=== PATIENT | female | born 1960 | race Caucasian/White ===

== ENCOUNTER 2020-07-13 15:08 | Observation (INO) | payer OTHER ==
[2020-07-13 15:55] LABS: ABSOLUTE LYMPHOCYTES (AUTO) 0.9 10^3/uL (0.5-4.7); ABSOLUTE MONOCYTES (AUTO) 0.2 10^3/uL (0.1-1.4); ABSOLUTE NEUT (AUTO) 8.5 10^3/uL (1.7-8.2); BASOPHILS % (AUTO) 0.3 % (0-2); EOSINOPHILS % (AUTO) 0.1 % (0-6); HEMOGLOBIN 12.8 g/dL (12.0-15.5); LYMPHOCYTES % (AUTO) 9.4 % (13-45); MEAN CORPUSCULAR HEMOGLOBIN 31.3 pg (27.0-33.4); MEAN CORPUSCULAR HGB CONC 34.7 g/dL (32.0-36.0); MEAN CORPUSCULAR VOLUME 90 fl (80-97); MONOCYTES % (AUTO) 2.4 % (3-13); PLATELET COUNT 173 10^3/uL (150-450); RED BLOOD COUNT 4.11 10^6/uL (3.72-5.28); RED CELL DISTRIBUTION WIDTH 12.8 % (11.5-14.0); SEGMENTED NEUTROPHILS % (AUTO) 87.8 % (42-78); TOTAL CELLS COUNTED % (AUTO) 100 %; WHITE BLOOD COUNT 9.7 10^3/uL (4.0-10.5)
[2020-07-13 16:08] LABS: ALBUMIN 3.8 g/dL (3.5-5.0); ALKALINE PHOSPHATASE 110 U/L (38-126); ANION GAP 6 (5-19); ASPARTATE AMINO TRANSFERASE 24 U/L (14-36); BILIRUBIN,DIRECT 0.2 mg/dL (0.0-0.4); BILIRUBIN,TOTAL 0.4 mg/dL (0.2-1.3); BLOOD UREA NITROGEN 19 mg/dL (7-20); CALCIUM 9.3 mg/dL (8.4-10.2); CARBON DIOXIDE 26 mmol/L (22-30); CHLORIDE 104 mmol/L (98-107); CREATINE KINASE 54 U/L (30-135); GLUCOSE 180 mg/dL (75-110); POTASSIUM 3.3 mmol/L (3.6-5.0); TOTAL PROTEIN 6.1 g/dL (6.3-8.2)
[2020-07-13 16:10] LABS: APPEARANCE,URINE SLIGHTLY-CLOUDY; BILIRUBIN,URINE NEGATIVE (NEGATIVE); COLOR,URINE YELLOW; GLUCOSE, URINE NEGATIVE (NEGATIVE); KETONES,URINE 20 mg/dL (NEGATIVE); LEUKOCYTE ESTERASE,URINE NEGATIVE (NEGATIVE); NITRITE,URINE NEGATIVE (NEGATIVE); PROTEIN,URINE 30 mg/dL (NEGATIVE); URINE SPECIFIC GRAVITY 1.013; UROBILINOGEN,URINE NEGATIVE mg/dL (<2.0)
[2020-07-13 16:19] LABS: CREATINE KINASE MB 1.09 ng/mL (<4.55)
[2020-07-13 16:25] LABS: TROPONIN I 0.06 ng/mL
[2020-07-13] MEDS ORDERED: NORMAL SALINE 1000 ML 1,000 ML IV ONE (16:40)
--- NOTE | 2020-07-13 17:08 | ER Document Report ---
ED Syncope and Near Syncope - General Chief Complaint: Syncope Stated Complaint: POSSIBLE SYNCOPE Time Seen by Provider: 07/13/20 16:29 - HPI Notes: Patient is a 59-year-old female with a past medical history of depression who presents with syncope. Patient states that she ate sausage this morning. She went to go sit out on the back deck. She states she began to feel warm and flushed. She had itching to both of her palms. She went to get Benadryl. Patient went to sit back down because she began to feel lightheaded. She did mention some chest tightness. Her mother found her passed out in the chair. They are unsure how long she was passed out for. Patient only remembers when the paramedics came. According to reports, patient was hypotensive and hypoxic. They placed her on nonrebreather. On arrival to the ER, patient is alert and oriented and on room air. Patient states this happened about 3 months ago with the same symptoms. She went to [facility] and had a normal work-up and was discharged. She mentions she ate sausage before that episode as well. She is not sure if she has developed an allergy to this. She does not have a family doctor in the area. Currently, she denies any complaints. She is resting comfortably. - Related Data Allergies/Adverse Reactions: No Known Allergies Allergy (Unverified 07/13/20 16:14) Past Medical History - General Information source: Patient, Emergency Med Personnel - Social History Smoking Status: Never Smoker Chew tobacco use (# tins/day): No Frequency of alcohol use: None Drug Abuse: None Family History: Reviewed & Not Pertinent Patient has homicidal ideation: No Review of Systems - Review of Systems Notes: CONSTITUTIONAL: No fever, fatigue or weight loss. SKIN: No rash. HENT: No congestion, ear pain, or sore throat. EYES: No recent vision problems or eye pain. CARDIOVASCULAR: No chest pain or edema. RESPIRATORY: No cough, shortness of breath, congestion, or wheezing. GASTROINTESTINAL: No abdominal pain, nausea, vomiting, bloody stools or diarrhea. GENITOURINARY: No dysuria. MUSCULOSKELETAL: No joint pain or swelling. LYMPHATIC: No swollen glands. NEUROLOGIC: No seizures. No headache, focal weakness or sensory changes. HEMATOLOGIC: No unusual bruising or bleeding. PSYCHIATRIC: History of depression. Physical Exam - Vital signs Vitals: Resp BP Pulse Ox 32 H 115/59 L 96 07/13/20 15:14 07/13/20 15:14 07/13/20 15:14 - General General appearance: Appears well In distress: None Notes: VITAL SIGNS: Within normal limits. GENERAL: No acute distress, non-toxic appearance. HEAD: Normal with no signs of head trauma. EYES: Conjunctiva normal NOSE: Normal. NECK: Normal range of motion. Supple. No meningismus. CHEST: Clear breath sounds bilaterally. No wheezes, rales, or rhonchi. CARDIAC: Regular rate and rhythm. VASCULAR: No Edema. ABDOMEN: Normal and soft with no tenderness. GENITOURINARY: Normal, No tenderness MUSCULOSKELETAL: Good range of motion of all major joints. Extremities without clubbing, cyanosis or edema. NEUROLOGICAL: Alert and oriented x 3. No focal sensory or strength deficits. Speech normal. Follows commands appropriately. PSYCHIATRIC: Normal Affect, judgement and mood. SKIN: Normal appearance with no rashes or lesions. Course - Re-evaluation Re-evalutation: 07/14/20 01:20 Patient's presentation is concerning. She was hypoxic and hypotensive for EMS. This has resolved now. She does have an elevated troponin. Patient denies any chest pain. I am concerned because she had a syncopal episode and has an elevated troponin. I believe she requires admission for a cardiac work-up. Patient is very agreeable to this. I discussed with the hospitalists who were also in agreement. - Vital Signs Vital signs: Temp Pulse Resp BP Pulse Ox 97.6 F 93 18 99/46 L 100 07/13/20 22:36 07/13/20 22:36 07/13/20 22:36 07/13/20 22:36 07/13/20 22:36 - Laboratory Results Result Diagrams: 07/13/20 15:30 07/13/20 15:30 Laboratory Results Interpreted: 07/13/20 07/13/20 07/13/20 15:30 15:30 15:30 Lymph % (Auto) 9.4 L [place] % (Auto) 2.4 L Absolute Neuts (auto) 8.5 H Seg Neutrophils % 87.8 H Sodium 136.0 L Potassium 3.3 L Glucose 180 H Magnesium 1.5 L Total Protein 6.1 L Urine Protein Urine Ketones 07/13/20 15:45 Lymph % (Auto) [place] % (Auto) Absolute Neuts (auto) Seg Neutrophils % Sodium Potassium Glucose Magnesium Total Protein Urine Protein 30 H Urine Ketones 20 H Critical Laboratory Results Reviewed: Yes Attending or Supervising Physician who Reviewed Labs: MARGUERITE JUDD - Radiology Results Critical Radiology Results Reviewed: No Critical Results - EKG Interpretation by Sc EKG shows normal: Sinus rhythm Rate: Normal Rhythm: NSR When compared to previous EKG there are: Previous EKG unavailable Additional EKG results interpreted by me: 07/13/20 17:09 Sinus rhythm at a rate of 92. QTc 481. No acute ST changes. No previous EKG available for comparison. Discharge - Discharge Clinical Impression: Elevated troponin Syncope Qualifiers: Syncope type: unspecified Qualified Code(s): R55 - Syncope and collapse Disposition: ADMITTED OBSERVATION Admitting Provider: Parul (Hospitalist) Unit Admitted: Telemetry
--- NOTE | 2020-07-13 17:09 | RADIOLOGY REPORT (SQ) ---
EXAM DESCRIPTION: CHEST SINGLE VIEW IMAGES COMPLETED DATE/TIME: 07/13/2020 3:52 pm REASON FOR STUDY: syncope, elevated troponin COMPARISON: None. EXAM PARAMETERS: NUMBER OF VIEWS: One view. TECHNIQUE: Single frontal radiographic view of the chest acquired. RADIATION DOSE: NA LIMITATIONS: None. FINDINGS: LUNGS AND PLEURA: Lungs are hyperinflated. No opacities, masses or pneumothorax. No pleur al effusion. MEDIASTINUM AND HILAR STRUCTURES: No masses. Contour normal. HEART AND VASCULAR STRUCTURES: Heart normal in size. Normal vasculature. BONES: No acute findings. HARDWARE: Surgical clips in the neck. OTHER: No other significant finding. IMPRESSION: Hyperinflated lungs which can be seen with obstructive lung disease. No acute cardiopul monary disease. TECHNICAL DOCUMENTATION: JOB ID: [id number] 2010 [employer]- All Rights Reserved Reading location - IP/workstation name: [email or web address]
[2020-07-13] MEDS ORDERED: ASPIRIN 325 MG TABLET PO ONE (17:29)
[2020-07-13] MEDS ORDERED: ONDANSETRON 4 MG TAB.RAPDIS PO PRN (18:23)
[2020-07-13] MEDS ORDERED: ACETAMINOPHEN 325 MG TABLET PO PRN (18:23)
[2020-07-13] MEDS ORDERED: NITROGLYCERIN 0.4 MG/TAB 25 TAB/BOTTLE SL PRN (18:23)
[2020-07-13] MEDS ORDERED: POTASSI CL 20 MEQ/50 ML RIDER 20 MEQ/50 ML RTUPB IV ONE (19:00)
--- NOTE | 2020-07-13 19:17 | PDOC H&P ---
History of Present Illness Admission Date/PCP: 07/13/20 17:41 Patient complains of: Syncope History of Present Illness: MALACHI LAGOS is a 59 year old female with past medical history depression and HLD who presents to the emergency department via EMS following syncopal episode. Syncopal episode precipitated by sensation of feeling flushed and hot all over with associated redness and itching on both her palms. Shortly after onset she began to feel "whoozy" and light headed as if she were going to pass out. Sat herself down in a chair where he mother found her passed out shortly after. When she woke she had a mild cough (which she relates more to her hyperventilating) and BAÑUELOS, both of which have resolved. She was able to describe entire event in detail to me. Per EMS pt was hypotensive (70/38) and hypoxic (83% RA) when they arrived on scene. Patient was placed on a nonrebreather. In the ED pt was alert and oriented with VSS. Patient reports similar episode ~3 months ago. Evaluated at [facility], normal work up, discharged home. Relates syncopal episodes to consuming meat. Evaluation in the ED patient with VSS. CBC, CXR, urines unremarkable. Chemistries notable for K 3.3, Na 136, and glucose 180. Toponin I 0.06. EKG without acute ST changes. She received single dose ASA and IVF and referred to the hospital team for further evaluation and observation. Past Medical History Cardiac Medical History: Denies: Atrial Fibrillation, Congestive Heart Failure, Coronary Artery Disease, DVT, Myocardial Infarction, Hypertension, Pulmonary Embolism, Heart Murmur Pulmonary Medical History: Denies: Asthma, Bronchitis, Chronic Obstructive Pulmonary Disease (COPD) Neurological Medical History: Denies: Hemorrhagic CVA, Ischemic CVA, Migraine, Seizures Endocrine Medical History: Denies: Diabetes Mellitus Type 1, Diabetes Mellitus Type 2, Hyperthyroidism, Hypothyroidism Renal/ Medical History: Denies: Chronic Kidney Disease, Nephrolithiasis Malignancy Medical History: Reports: Other - Skin cancer GI Medical History: Denies: Gastroesophageal Reflux Disease Psychiatric Medical History: Reports: Depression Denies: Alcohol Dependency, Substance Abuse, Tobacco Dependency Hematology: Denies: Anemia, Bleeding Tendencies Past Surgical History Past Surgical History: Reports: Section, Thyroidectomy Social History Information Source: Patient, Relative Lives with: Family Smoking Status: Never Smoker Electronic Cigarette use?: No Frequency of Alcohol Use: Occasional Hx Recreational Drug Use: No Drugs: None Hx Prescription Drug Abuse: No - Advance Directive Resuscitation Status: Full Code Family History Family History: CAD, CVA, Hyperlipidemia, Hypertension Parental Family History Reviewed: Yes Children Family History Reviewed: Yes Sibling(s) Family History Reviewed.: Yes Medication/Allergy Allergies/Adverse Reactions: No Known Allergies Allergy (Unverified 07/13/20 16:14) Review of Systems Constitutional: PRESENT: headache(s) - resolved.. ABSENT: chills, fatigue, fever(s) Eyes: PRESENT: visual disturbances - resolved Ears: ABSENT: hearing changes Nose, Mouth, and Throat: ABSENT: vertigo Cardiovascular: ABSENT: chest pain, dyspnea on exertion, palpitations Respiratory: PRESENT: cough. ABSENT: dyspnea, sputum Gastrointestinal: PRESENT: nausea. ABSENT: abdominal pain, diarrhea, vomiting Genitourinary: ABSENT: difficulty urinating Musculoskeletal: ABSENT: back pain, muscle weakness Neurological: PRESENT: dizziness, syncope. ABSENT: abnormal movements, abnormal speech, confusion, focal weakness, numbness, paresthesias Psychiatric: PRESENT: depression. ABSENT: homidical ideation, suicidal ideation Endocrine: ABSENT: polydipsia, polyphagia, polyuria Hematologic/Lymphatic: PRESENT: easy bruising. ABSENT: easy bleeding Physical Exam Vital Signs: Temp Pulse Resp BP Pulse Ox 98.8 F 91 17 122/82 97 07/13/20 16:15 07/13/20 16:15 07/13/20 18:00 07/13/20 18:00 07/13/20 18:00 Intake & Output 07/12/20 07/13/20 07/14/20 06:59 06:59 06:59 Weight 72.1 kg General appearance: PRESENT: no acute distress, cooperative, well-developed, well-nourished Head exam: PRESENT: atraumatic, normocephalic Eye exam: PRESENT: EOMI, PERRLA. ABSENT: scleral icterus Ear exam: PRESENT: normal external ear exam Mouth exam: PRESENT: dry mucosa, tongue midline Neck exam: PRESENT: full ROM. ABSENT: carotid bruit, JVD, lymphadenopathy, tenderness Respiratory exam: PRESENT: clear to auscultation jl, symmetrical, unlabored. ABSENT: chest wall tenderness Cardiovascular exam: PRESENT: RRR, +S1, +S2. ABSENT: diastolic murmur, systolic murmur Pulses: PRESENT: normal radial pulses GI/Abdominal exam: PRESENT: normal bowel sounds, soft. ABSENT: tenderness Rectal exam: PRESENT: deferred Extremities exam: PRESENT: full ROM, pedal edema. ABSENT: clubbing Musculoskeletal exam: PRESENT: ambulatory, full ROM. ABSENT: deformity Neurological exam: PRESENT: alert, awake, oriented to person, oriented to place, oriented to time, oriented to situation, CN II-XII grossly intact. ABSENT: motor sensory deficit Psychiatric exam: PRESENT: appropriate affect, normal mood Skin exam: PRESENT: dry, intact, warm Results Laboratory Results: 07/13/20 15:30 07/13/20 15:30 07/13/20 07/13/20 07/13/20 15:30 15:30 15:45 WBC 9.7 RBC 4.11 Hgb 12.8 Hct 37.0 MCV 90 MCH 31.3 MCHC 34.7 RDW 12.8 Plt Count 173 Seg Neutrophils % 87.8 H Sodium 136.0 L Potassium 3.3 L Chloride 104 Carbon Dioxide 26 Anion Gap 6 BUN 19 Creatinine 0.87 Est GFR ( Amer) > 60 Glucose 180 H Calcium 9.3 Total Bilirubin 0.4 AST 24 Alkaline Phosphatase 110 Total Protein 6.1 L Albumin 3.8 Urine Color YELLOW Urine Appearance SLIGHTLY-CLOUDY Urine pH 7.0 Ur Specific Irene 1.013 Urine Protein 30 H Urine Glucose (UA) NEGATIVE Urine Ketones 20 H Urine Blood NEGATIVE Urine Nitrite NEGATIVE Ur Leukocyte Esterase NEGATIVE Urine WBC (Auto) 0 07/13/20 07/13/20 15:30 15:30 Creatine Kinase 54 CK-MB (CK-2) 1.09 Troponin I 0.060 Impressions: Chest X-Ray 07/13/20 16:41 IMPRESSION: Hyperinflated lungs which can be seen with obstructive lung disease. No acute cardiopulmonary disease. Assessment and Plan - Diagnosis (1) Syncope Qualifiers: Syncope type: unspecified Qualified Code(s): R55 - Syncope and collapse Is this a current diagnosis for this admission?: Yes Plan: Syncopal episode, approximately 20 minutes in duration. With associated hypotension and hypoxia. Since resolved, BP WNL, O2 sats WNL on room air. Currently asymptomatic. Denies history of arrhythmias. EKG sinus rhythm rate in 90s. Placed on telemetry. Orthostatic vitals every shift. Monitor electrolytes, replete accordingly. TSH, free T4 in the morning. Admit for observation. Cardiology consulted, appreciate recommendations. (2) Elevated troponin Is this a current diagnosis for this admission?: Yes Plan: Troponin 0.06, trending Likely secondary to demand mismatch, given recent history of syncopal episode wi th associated hypotension and hypoxia. Denies ischemic symptoms. EKG sinus rhythm, without ST changes. Placed on telemetry. Lipid panel in the morning. Initiate aspirin and statin. Cardiology consulted, appreciate recommendations. (3) Hypotension Is this a current diagnosis for this admission?: Yes Plan: Per EMS pt hypotensive on initial evaluation. Responded to fluids. BP since has been stale. Cnt to monitor. (4) Hypokalemia Is this a current diagnosis for this admission?: Yes Plan: K 3.3 on initial evaluation. Will replete. Monitor on morning labs. (5) Depression Is this a current diagnosis for this admission?: Yes Plan: Hx depression. Home medications include: Buspar, Wellbutrin. Initiate home meds. (6) HLD (hyperlipidemia) Is this a current diagnosis for this admission?: Yes Plan: Hx HLD. Statin as above. - Time Time Spent with patient: 35 or more minutes Medications reviewed and adjusted accordingly: Yes Anticipated Discharge Disposition: Home, Self Care Anticipated Discharge Timeframe: within 48 hours
--- NOTE | 2020-07-13 21:21 | EKG REPORT ---
SEVERITY:- BORDERLINE ECG - SINUS RHYTHM PROBABLE LEFT ATRIAL ABNORMALITY BORDERLINE T WAVE ABNORMALITIES : Confirmed by: Oscar Freedman MD 13-Jul-2020 21:20:35
[2020-07-13] MEDS ORDERED: ATORVASTATIN CALCIUM 80 MG TABLET PO SCH (22:00)
[2020-07-13] MEDS: ENOXAPARIN SODIUM INJ 30 MG/0.3 ML DISP.SYRIN SUBCUT SCH (22:04)
--- NOTE | 2020-07-14 06:17 | EKG REPORT ---
SEVERITY:- NORMAL ECG - SINUS RHYTHM : Confirmed by: Oscar Freedman MD 14-Jul-2020 06:16:09
[2020-07-14 06:29] LABS: APPEARANCE,URINE CLEAR; BILIRUBIN,URINE NEGATIVE (NEGATIVE); COLOR,URINE YELLOW; GLUCOSE, URINE NEGATIVE (NEGATIVE); KETONES,URINE NEGATIVE (NEGATIVE); LEUKOCYTE ESTERASE,URINE SMALL (NEGATIVE); NITRITE,URINE NEGATIVE (NEGATIVE); PROTEIN,URINE NEGATIVE (NEGATIVE); URINE SPECIFIC GRAVITY 1.011; UROBILINOGEN,URINE NEGATIVE mg/dL (<2.0)
[2020-07-14 06:42] LABS: HEMATOCRIT 34.6 % (36.0-47.0); HEMOGLOBIN 11.7 g/dL (12.0-15.5); MEAN CORPUSCULAR HEMOGLOBIN 30.8 pg (27.0-33.4); MEAN CORPUSCULAR HGB CONC 33.9 g/dL (32.0-36.0); MEAN CORPUSCULAR VOLUME 91 fl (80-97); PLATELET COUNT 170 10^3/uL (150-450); RED CELL DISTRIBUTION WIDTH 13.5 % (11.5-14.0); WHITE BLOOD COUNT 6.6 10^3/uL (4.0-10.5)
[2020-07-14 07:03] LABS: BLOOD UREA NITROGEN 12 mg/dL (7-20); CALCIUM 8.9 mg/dL (8.4-10.2); CHOLESTEROL 184.75 mg/dL (0-200); GLUCOSE 86 mg/dL (75-110); POTASSIUM 4.1 mmol/L (3.6-5.0); TRIGLYCERIDES 89 mg/dL (<150)
[2020-07-14 07:08] LABS: CARBON DIOXIDE 26 mmol/L (22-30); CHLORIDE 110 mmol/L (98-107)
[2020-07-14 07:13] LABS: DIRECT LDL 68 mg/dL (<100)
[2020-07-14 07:19] LABS: FREE T4 (FREE THYROXINE) 0.84 ng/dL (0.78-2.19)
[2020-07-14 07:23] LABS: ANION GAP 4 (5-19); VLDL CHOLESTEROL 17.8 mg/dL (10-31)
[2020-07-14 07:33] LABS: THYROID STIMULATING HORMONE 1.05 uIU/mL (0.47-4.68)
--- NOTE | 2020-07-14 09:30 | PDOC CONSULTATION ---
Consultation Consult Date: 07/14/20 Attending physician:: JOSE A CHRISTIE Provider Consulted: ROMAN VO Consult reason:: Presyncope. History of Present Illness Admission Date/PCP: 07/13/20 17:41 History of Present Illness: MALACHI LAGOS is a 59 year old female with prior history of depression, prior history of presyncope/syncope with normal work-up several months ago, hypothyroidism secondary to thyroidectomy, hyperlipidemia, remote smoker who quit in 1992 and without family history of premature coronary artery disease who is consulted to our service for evaluation of elevated troponin and syncope. The patient states that she lost a significant amount of weight several years ago when she changed her diet and started eating healthier, she barely eats any meat nowadays. She was in her normal state of health until yesterday when after eating a sausage biscuit and while she was sitting, she began to feel hot and had a feeling she was about to pass out. This was followed by itchiness in her hands and feeling woozy at which point she thought she was having allergic reaction to the food she was eating. She tried to get up to get some Benadryl however she felt very weak and fell back on her chair. She eventually was able to get up and take some Benadryl and sat down her chair. At some point she lost consciousness but did not fall. Per the EMS and ER physician report, her mother found her drooling and leaning to the side. EMS documented a blood pressure of 70/38 with a heart rate of 148 and a pulse ox of 83%. She was given IV fluids and oxygen with resolution of those vital signs. She had been asymptomatic since admission and specifically without chest pain, shortness of breath, PARIKH, PND, lower extremity edema, palpitations, syncope or presyncope. Her orthostatic vital signs have been within normal limits. She does not exercise s trenuously however she does walk her dog twice a day for 30 minutes without cardiac complaints. Her EKG demonstrated normal sinus rhythm. Her telemetry this morning shows normal sinus rhythm with episodes of sinus tachycardia. Physical exam on 07/14/2020: GENERAL: Pleasant and conversational. Oriented x3 with normal mood. Not in acute distress. Well groomed and well developed. HEENT: Normocephalic, atraumatic. Pupils equal. Sclerae anicteric. Oropharynx moist. NECK: No JVD. No carotid bruits. LUNGS: Clear to auscultation bilaterally. Normal respiratory effort without the use of accessory muscles or intercostal retractions. CARDIOVASCULAR: Regular rate and rhythm, normal S1 and S2 without murmurs, rubs, or gallops. PMI not displaced. ABDOMEN: No masses or tenderness to palpation. No bruit. No splenomegaly or hepatomegaly. No abdominal aorta bruit noted. EXTREMITIES: No edema, no cyanosis, no clubbing. +2 pulses femoral and pedal pulses bilaterally. SKIN: No lesions or rashes. MUSCULOSKELETAL: No chest tenderness to palpation. NEUROLOGIC: Nonfocal. No gross sensory or motor deficits bilateral upper or lower extremities. Past Medical History Cardiac Medical History: Denies: Atrial Fibrillation, Congestive Heart Failure, Coronary Artery Disease, DVT, Myocardial Infarction, Hypertension, Pulmonary Embolism, Heart Murmur Pulmonary Medical History: Denies: Asthma, Bronchitis, Chronic Obstructive Pulmonary Disease (COPD), Pneumonia, Tuberculosis Neurological Medical History: Denies: Hemorrhagic CVA, Ischemic CVA, Migraine, Seizures Endocrine Medical History: Denies: Diabetes Mellitus Type 1, Diabetes Mellitus Type 2, Hyperthyroidism, Hypothyroidism Renal/ Medical History: Denies: Chronic Kidney Disease, End Stage Renal Disease, Nephrolithiasis Malignancy Medical History: Reports: Other - Skin cancer GI Medical History: Denies: Cirrhosis, Gastroesophageal Reflux Disease Musculoskeltal Medical History: Denies: Arthritis Psychiatric Medical History: Reports: Depression Denies: Alcohol Dependency, Bipolar Disorder, Substance Abuse, Tobacco Dependency Hematology: Denies: Anemia, Bleeding Tendencies Past Surgical History Past Surgical History: Reports: Section, Thyroidectomy Social History Lives with: Family Smoking Status: Never Smoker Electronic Cigarette use?: No Frequency of Alcohol Use: Occasional Hx Recreational Drug Use: No Drugs: None Hx Prescription Drug Abuse: No - Advance Directive Resuscitation Status: Full Code Family History Family History: Reviewed & Not Pertinent Parental Family History Reviewed: Yes Children Family History Reviewed: Yes Sibling(s) Family History Reviewed.: Yes Medication/Allergy Allergies/Adverse Reactions: No Known Allergies Allergy (Unverified 07/13/20 16:14) Physical Exam Vital Signs: Temp Pulse Resp BP Pulse Ox 97.4 F 86 18 103/64 95 07/14/20 04:00 07/14/20 04:00 07/14/20 04:00 07/14/20 04:00 07/14/20 04:00 Intake & Output 07/12/20 07/13/20 07/14/20 06:59 06:59 06:59 Intake Total 1310 Balance 1310 Weight 68.9 kg Results Laboratory Results: 07/13/20 15:30 07/13/20 15:30 07/13/20 07/13/20 07/13/20 15:30 15:30 15:30 WBC 9.7 RBC 4.11 Hgb 12.8 Hct 37.0 MCV 90 MCH 31.3 MCHC 34.7 RDW 12.8 Plt Count 173 Seg Neutrophils % 87.8 H Sodium 136.0 L Potassium 3.3 L Chloride 104 Carbon Dioxide 26 Anion Gap 6 BUN 19 Creatinine 0.87 Est GFR ( Amer) > 60 Glucose 180 H Calcium 9.3 Magnesium 1.5 L Total Bilirubin 0.4 AST 24 Alkaline Phosphatase 110 Total Protein 6.1 L Albumin 3.8 Urine Color Urine Appearance Urine pH Ur Specific [place] Urine Protein Urine Glucose (UA) Urine Ketones Urine Blood Urine Nitrite Ur Leukocyte Esterase Urine WBC (Auto) 07/13/20 15:45 WBC RBC Hgb Hct MCV MCH MCHC RDW Plt Count Seg Neutrophils % Sodium Potassium Chloride Carbon Dioxide Anion Gap BUN Creatinine Est GFR ( Amer) Glucose Calcium Magnesium Total Bilirubin AST Alkaline Phosphatase Total Protein Albumin Urine Color YELLOW Urine Appearance SLIGHTLY-CLOUDY Urine pH 7.0 Ur Specific [place] 1.013 Urine Protein 30 H Urine Glucose (UA) NEGATIVE Urine Ketones 20 H Urine Blood NEGATIVE Urine Nitrite NEGATIVE Ur Leukocyte Esterase NEGATIVE Urine WBC (Auto) 0 07/13/20 07/13/20 07/13/20 15:30 15:30 18:30 Creatine Kinase 54 CK-MB (CK-2) 1.09 Troponin I 0.060 0.242 07/13/20 22:00 Creatine Kinase CK-MB (CK-2) Troponin I 0.150 Impressions: Chest X-Ray 07/13/20 16:41 IMPRESSION: Hyperinflated lungs which can be seen with obstructive lung disease. No acute cardiopulmonary disease. 07/14/20 05:33 07/14/20 05:33 MCV 91 fl (80-97) 07/14/20 05:33 MCH 30.8 pg (27.0-33.4) 07/14/20 05:33 MCHC 33.9 g/dL (32.0-36.0) 07/14/20 05:33 RDW 13.5 % (11.5-14.0) 07/14/20 05:33 Seg Neutrophils % 87.8 % (42-78) H 07/13/20 15:30 Chloride 110 mmol/L (98-107) H 07/14/20 05:33 Carbon Dioxide 26 mmol/L (22-30) 07/14/20 05:33 Anion Gap 4 (5-19) L 07/14/20 05:33 Est GFR ( Amer) > 60 (>60) 07/14/20 05:33 Glucose 86 mg/dL (75-110) 07/14/20 05:33 Calcium 8.9 mg/dL (8.4-10.2) 07/14/20 05:33 Magnesium 2.0 mg/dL (1.6-2.3) 07/14/20 05:33 Total Bilirubin 0.4 mg/dL (0.2-1.3) 07/13/20 15:30 AST 24 U/L (14-36) 07/13/20 15:30 Alkaline Phosphatase 110 U/L (38-126) 07/13/20 15:30 Total Protein 6.1 g/dL (6.3-8.2) L 07/13/20 15:30 Albumin 3.8 g/dL (3.5-5.0) 07/13/20 15:30 Triglycerides 89 mg/dL (<150) 07/14/20 05:33 Cholesterol 184.75 mg/dL (0-200) 07/14/20 05:33 LDL Cholesterol Direct 68 mg/dL (<100) 07/14/20 05:33 VLDL Cholesterol 17.8 mg/dL (10-31) 07/14/20 05:33 HDL Cholesterol 84 mg/dL (>40) 07/14/20 05:33 TSH 1.05 uIU/mL (0.47-4.68) 07/14/20 05:33 Free T4 0.84 ng/dL (0.78-2.19) 07/14/20 05:33 Urine Color YELLOW 07/14/20 04:49 Urine Appearance CLEAR 07/14/20 04:49 Urine pH 7.0 (5.0-9.0) 07/14/20 04:49 Ur Specific [place] 1.011 07/14/20 04:49 Urine Protein NEGATIVE mg/dL (NEGATIVE) 07/14/20 04:49 Urine Glucose (UA) NEGATIVE mg/dL (NEGATIVE) 07/14/20 04:49 Urine Ketones NEGATIVE mg/dL (NEGATIVE) 07/14/20 04:49 Urine Blood NEGATIVE (NEGATIVE) 07/14/20 04:49 Urine Nitrite NEGATIVE (NEGATIVE) 07/14/20 04:49 Ur Leukocyte Esterase SMALL (NEGATIVE) H 07/14/20 04:49 Urine WBC (Auto) 1 /HPF 07/14/20 04:49 Urine RBC (Auto) 0 /HPF 07/14/20 04:49 07/13/20 07/13/20 07/13/20 15:30 15:30 18:30 Creatine Kinase 54 CK-MB (CK-2) 1.09 Troponin I 0.060 0.242 07/13/20 22:00 Creatine Kinase CK-MB (CK-2) Troponin I 0.150 Current Medication List Generic Name Dose Route Start Last Admin Trade Name Freq PRN Reason Stop Dose Admin Acetaminophen 650 mg 07/13/20 18:23 Acetaminophen 325 Mg Tablet PO 08/12/20 18:22 Q4HP PRN FOR HEADACHE Aspirin 81 mg 07/14/20 10:00 Aspirin 81 Mg Tablet, Ent Coated PO 08/13/20 09:59 DAILY [facility] Atorvastatin Calcium 80 mg 07/13/20 22:00 07/13/20 22:04 Atorvastatin Calcium 80 Mg Tablet PO 08/12/20 21:59 80 mg QHS YIN Administration Enoxaparin Sodium 30 mg 07/13/20 22:00 07/13/20 22:04 Enoxaparin Sodium Inj 30 Mg/0.3 Ml Disp.Syrin SUBCUT 08/12/20 21:59 30 mg Q12 YIN Administration Famotidine 20 mg 07/14/20 10:00 Famotidine 20 Mg Tablet PO 08/13/20 09:59 BID YIN Nitroglycerin 1 tab 07/13/20 18:23 Nitroglycerin 0.4 Mg/Tab 25 Tab/Bottle SL Q5MP PRN FOR CHEST PAIN Ondansetron HCl 4 mg 07/13/20 18:23 Ondansetron 4 Mg Tab.Rapdis PO 08/12/20 18:22 Q6HP PRN FOR NAUSEA/VOMITING Sodium Chloride 2.5 ml 07/13/20 22:00 07/14/20 05:14 Normal Saline Flush 2.5 Ml Disp.Syrin IV 08/12/20 21:59 2.5 ml Q8 YIN Administration Discontinued Medications Generic Name Dose Route Start Last Admin Trade Name Thu QUINTANAN Reason Stop Dose Admin Aspirin 325 mg 07/13/20 17:29 07/13/20 17:51 Aspirin 325 Mg Tablet PO 07/13/20 17:30 325 mg NOW ONE Administration Sodium Chloride 1,000 mls @ 0 mls/hr 07/13/20 16:40 07/13/20 19:00 Nacl 0.9% 1000 Ml Iv Soln IV 07/13/20 16:41 Infused BOLUS ONE Infusion Wide Open Potassium Chloride/Water 20 meq in 50 mls @ 25 mls/hr 07/13/20 19:00 07/13/20 22:00 Potassium Chloride Boo 20 Meq/50 Ml IV 07/13/20 20:59 Infused NOW ONE Infusion Assessment & Plan - Diagnosis (1) Syncope Qualifiers: Syncope type: unspecified Qualified Code(s): R55 - Syncope and collapse Is this a current diagnosis for this admission?: Yes Plan: Likely secondary to a vasovagal event. Her cardiovascular exam is normal this morning and her telemetry did not show any complex or sustained atrial/ventricular dysrhythmias however need to rule out occurrence of any dysrhythmias in the outpatient setting. Normal orthostatic vital signs since admission and since IV hydration. Recommendations: -Continue current medical management. -Continue repletion of electrolytes. -Increase fluid and salt intake. -Preventice monitor in the outpatient setting, I will arrange for that. -Echocardiogram as ordered. -Continue with cardiac telemetry. (2) Elevated troponin Is this a current diagnosis for this admission?: Yes Plan: Likely secondary to a type II OR given her very low blood pressure at home associated with tachycardia and hypoxemia. The patient has never had any ischemic symptoms even when walking her dogs for 30 minutes twice a day. I spok e with her at length about the pathophysiology of type II OR and further work-up with stress testing. The patient prefers outpatient work-up and is eager to go home. At this point we will proceed with echocardiography and, if normal ejection fraction and no regional wall motion abnormalities, she can undergo stress testing as an outpatient.
[2020-07-14] MEDS ORDERED: ASPIRIN 81 MG TABLET, ENT COATED PO SCH (10:00)
[2020-07-14] MEDS: ENOXAPARIN SODIUM INJ 30 MG/0.3 ML DISP.SYRIN SUBCUT SCH (10:36)
[2020-07-14] MEDS: FAMOTIDINE 20 MG TABLET PO SCH ×2 (10:36→17:28)
[2020-07-14] MEDS ORDERED: (PENDING PHARMACY ID) (Butalb/Acetaminophen/Caffeine [Butalb-Acetamin-Caff 50-325-40] 1 EA PO PRN (14:39)
[2020-07-14] MEDS ORDERED: BUTALB/ACETAMINOPHEN/CAFFEINE 1 TAB EACH PO PRN (14:43)
[2020-07-14] MEDS ORDERED: (PENDING PHARMACY ID) (Bupropion Hcl [Bupropion Xl] 150 MG Tab.Er.24h) PO SCH (14:45)
--- NOTE | 2020-07-14 16:39 | XCELERA REPORT ---
[address] [address] Transthoracic Echocardiogram Report Name: MALACHI LAGOS Age: 59 yrs Gender: Female : 1960 Patient Status: Inpatient Patient Location: [address] [place], [place] [address] Study Date: 07/14/2020 09:55 AM Height: 64 in Weight: 148 lb BSA: 1.7 m2 Procedure: A complete two-dimensional transthoracic echocardiogram was performed (2D, M-mode, spectral and color flow Doppler). The study was technically good with many images being of high quality. Reason For Study: Syncope, elevated troponin Ordering Physician: ROMAN BLANCAS Performed By: Helena Mae Interpretation Summary The left ventricle is normal in size, thickness and function. Left ventricular systolic function is normal. The Ejection Fraction estimate is 50-55%. Doppler measurements suggest normal left ventricular diastolic function. No regional wall motion abnormalities noted. There is no thrombus. Mild MR, mild TR. No prior studies for comparison. MMode/2D Measurements & Calculations RVDd: 2.4 cm LVIDd: 4.6 cm FS: 30.5 % Ao root diam: 2.8 cm IVSd: 0.96 cm LVIDs: 3.2 cm EDV(Teich): Ao root area: 99.0 ml LVPWd: 0.80 cm 6.3 cm2 ESV(Teich): 41.6 ml EF(Teich): 58.0 % EDV(MOD-sp4): SV(MOD-sp4): 60.0 ml 25.0 ml ESV(MOD-sp4): 35.0 ml EF(MOD-sp4): 41.6 % Doppler Measurements & Calculations MV E max jean: MV dec slope: Ao V2 max: LV V1 max P.2 cm/sec 91.3 cm/sec 3.0 mmHg MV A max jean: 487.6 cm/sec2 Ao max PG: LV V1 max: 58.3 cm/sec MV dec time: 0.16 sec 3.3 mmHg 86.6 cm/sec MV E/A: 1.3 PA V2 max: TR max jean: 75.3 cm/sec 243.3 cm/sec PA max P.3 mmHg TR max P.7 mmHg Left Ventricle The left ventricle is normal in size, thickness and function. Left ventricular systolic function is normal. The Ejection Fraction estimate is 50-55%. Doppler measurements suggest normal left ventricular diastolic function. No regional wall motion abnormalities noted. There is no thrombus. Right Ventricle The right ventricle is normal in size, thickness and function. The right ventricular systolic function is normal. Atria The right atrium is normal. The left atrial size is normal. There is no Doppler evidence for an interatrial shunt. Mitral Valve The mitral valve is normal in structure and function. There is a mild amount of mitral regurgitation. Aortic Valve The aortic valve is normal in structure and functions normally. No aortic regurgitation is present. Tricuspid Valve The tricuspid is normal in structure and function. There is a mild amount of tricuspid regurgitation. Pulmonic Valve The pulmonic valve is normal in structure and function. There is no pulmonic valvular regurgitation. Great Vessels The aortic root is normal size. The inferior vena cava appeared normal. Effusions There is no pericardial effusion. : ROMAN BLANCAS Antonio
--- NOTE | 2020-07-14 17:42 | PDOC DISCHARGE SUMMARY ---
Impression - Admit/DC Date/PCP Admission Date/Primary Care Provider: 07/13/20 17:41 Discharge Date: 07/14/20 - Discharge Diagnosis (1) Syncope Is this a current diagnosis for this admission?: Yes (2) Elevated troponin Is this a current diagnosis for this admission?: Yes (3) Hypotension Is this a current diagnosis for this admission?: Yes (4) Hypokalemia Is this a current diagnosis for this admission?: Yes (5) Depression Is this a current diagnosis for this admission?: Yes (6) HLD (hyperlipidemia) Is this a current diagnosis for this admission?: Yes - Additional Information Resuscitation Status: Full Code Discharge Diet: As Tolerated Discharge Activity: Activity As Tolerated Prescriptions: Aspirin [Adult Low Dose Aspirin EC] 81 mg PO DAILY #30 tablet. Atorvastatin Calcium [Lipitor 80 mg Tablet] 80 mg PO QHS #30 tablet Home Medications: Aspirin [Adult Low Dose Aspirin EC] 81 mg PO DAILY #30 tablet. 07/14/20 Atorvastatin Calcium [Lipitor 80 mg Tablet] 80 mg PO QHS #30 tablet 07/14/20 Bupropion HCl [Bupropion Xl] 150 mg PO DAILY 07/14/20 Butalb/Acetaminophen/Caffeine [Lehten-Xxiamixf-Flbs 50-325-40] 1 each PO Q6HP PRN 07/14/20 Ubrogepant [Ubrelvy] 50 mg PO ASDIR PRN 07/14/20 History of Present Illiness History of Present Illness: MALACHI LAGOS is a 59 year old female with past medical history depression and HLD who presents to the emergency department via EMS following syncopal episode. Syncopal episode precipitated by sensation of feeling flushed and hot all over with associated redness and itching on both her palms. Shortly after onset she began to feel "whoozy" and light headed as if she were going to pass out. Sat herself down in a chair where he mother found her passed out shortly after. When she woke she had a mild cough (which she relates more to her hyperventilating) and BAÑUELOS, both of which have resolved. She was able to describe entire event in detail to me. Per EMS pt was hypotensive (70/38) and hypoxic (83% RA) when they arrived on scene. Patient was placed on a nonrebreather. In the ED pt was alert and oriented with VSS. Patient reports similar episode ~3 months ago. Evaluated at [place], normal work up, discharged home. Relates syncopal episodes to consuming meat. Evaluation in the ED patient with VSS. CBC, CXR, urines unremarkable. Chemistries notable for K 3.3, Na 136, and glucose 180. Toponin I 0.06. EKG without acute ST changes. She received single dose ASA and IVF and referred to the hospital team for further evaluation and observation. Hospital Course Hospital Course: Syncope: Likely secondary to vasovagal. Was evaluated by cardiology. Vital signs including orthostatic have been stable since receiving IVF. No arrhythmia noted on telemetry. Patient is stable and ready for discharge at this time. P atient is to follow-up with cardiology for further arrhythmia testing. Discussed plan with patient she is understanding and agreeable. Syncopal episode, approximately 20 minutes in duration. With associated hypotension and hypoxia. Vital signs stable. Currently asymptomatic. Denies history of arrhythmias. EKG sinus rhythm rate in 90s. Placed on telemetry, reviewed, no arrhythmia noted. Orthostatic vitals within normal limits. Monitor electrolytes, replete accordingly. TSH, free T4 within normal limits Cardiology consulted, recommendations reviewed in detail. Elevated troponin: Likely secondary to demand mismatch, given recent history of syncopal episode with associated hypotension and hypoxia. Peaked at 0.242, since plateaued. Without ischemic symptoms entire hospital course. Evaluated by cardiology. Echo without wall abnormalities. She has been arranged for outpatient stress test at [facility] on July 21. She will be contacted regarding time and further details. She is to follow-up with cardiology in the outpatient setting. We will continue her on daily aspirin and statin. At this time patient is stable and safe for discharge home with outpatient plans as above. Troponin 0.06, 0.242, 0.150 Denies ischemic symptoms. EKG sinus rhythm, without ST changes. Lipid panel within normal limits. Hypotension: Resolved. Vital signs stable following initiation of IVF. Vital signs remained stable after discontinuation of fluids. Patient is stable and ready for discharge. Per EMS pt hypotensive on initial evaluation. Responded to fluids. BP since has been stale. Cnt to monitor. Hypokalemia: Resolved after repletion. Depression: Home medications include: Buspar, Wellbutrin. HLD (hyperlipidemia): Patient reports a Hx HLD. Cholesterol 180. Statin as above. Physical Exam Vital Signs: Temp Pulse Resp BP Pulse Ox 98.5 F 97 17 114/56 L 100 07/14/20 12:02 07/14/20 14:00 07/14/20 12:02 07/14/20 12:02 07/14/20 12:02 Intake & Output 07/13/20 07/14/20 07/15/20 06:59 06:59 06:59 Intake Total 1310 1110 Output Total 1050 800 Balance 260 310 Weight 68.9 kg 71.7 kg Additional comments: General appearance: PRESENT: no acute distress, cooperative, well-developed, well-nourished Head exam: PRESENT: atraumatic, normocephalic Eye exam: PRESENT: EOMI, PERRLA. ABSENT: scleral icterus Mouth exam: PRESENT: dry mucosa, tongue midline Neck exam: PRESENT: full ROM. ABSENT: carotid bruit, JVD, lymphadenopathy, tenderness Respiratory exam: PRESENT: clear to auscultation jl, symmetrical, unlabored. ABSENT: chest wall tenderness Cardiovascular exam: PRESENT: RRR, +S1, +S2. ABSENT: diastolic murmur, systolic murmur Pulses: PRESENT: normal radial pulses GI/Abdominal exam: PRESENT: normal bowel sounds, soft. ABSENT: tenderness Extremities exam: PRESENT: full ROM, pedal edema. ABSENT: clubbing Musculoskeletal exam: PRESENT: ambulatory, full ROM. ABSENT: deformity Neurological exam: PRESENT: alert, awake, oriented to person, oriented to place, oriented to time, oriented to situation, CN II-XII grossly intact. ABSENT: motor sensory deficit Psychiatric exam: PRESENT: appropriate affect, normal mood Skin exam: PRESENT: dry, intact, warm Results Laboratory Results: WBC 6.6 10^3/uL (4.0-10.5) 07/14/20 05:33 RBC 3.80 10^6/uL (3.72-5.28) 07/14/20 05:33 Hgb 11.7 g/dL (12.0-15.5) L 07/14/20 05:33 Hct 34.6 % (36.0-47.0) L 07/14/20 05:33 MCV 91 fl (80-97) 07/14/20 05:33 MCH 30.8 pg (27.0-33.4) 07/14/20 05:33 MCHC 33.9 g/dL (32.0-36.0) 07/14/20 05:33 RDW 13.5 % (11.5-14.0) 07/14/20 05:33 Plt Count 170 10^3/uL (150-450) 07/14/20 05:33 Lymph % (Auto) 9.4 % (13-45) L 07/13/20 15:30 Dolores % (Auto) 2.4 % (3-13) L 07/13/20 15:30 Eos % (Auto) 0.1 % (0-6) 07/13/20 15:30 Baso % (Auto) 0.3 % (0-2) 07/13/20 15:30 Absolute Neuts (auto) 8.5 10^3/uL (1.7-8.2) H 07/13/20 15:30 Absolute Lymphs (auto) 0.9 10^3/uL (0.5-4.7) 07/13/20 15:30 Absolute Monos (auto) 0.2 10^3/uL (0.1-1.4) 07/13/20 15:30 Absolute Eos (auto) 0.0 10^3/uL (0.0-0.6) 07/13/20 15:30 Absolute Basos (auto) 0.0 10^3/uL (0.0-0.2) 07/13/20 15:30 Seg Neutrophils % 87.8 % (42-78) H 07/13/20 15:30 Sodium 140.2 mmol/L (137-145) 07/14/20 05:33 Potassium 4.1 mmol/L (3.6-5.0) 07/14/20 05:33 Chloride 110 mmol/L (98-107) H 07/14/20 05:33 Carbon Dioxide 26 mmol/L (22-30) 07/14/20 05:33 Anion Gap 4 (5-19) L 07/14/20 05:33 BUN 12 mg/dL (7-20) 07/14/20 05:33 Creatinine 0.72 mg/dL (0.52-1.25) 07/14/20 05:33 Est GFR ( Amer) > 60 (>60) 07/14/20 05:33 Est GFR (MDRD) Non-Af > 60 (>60) 07/14/20 05:33 Glucose 86 mg/dL (75-110) 07/14/20 05:33 Calcium 8.9 mg/dL (8.4-10.2) 07/14/20 05:33 Magnesium 2.0 mg/dL (1.6-2.3) 07/14/20 05:33 Total Bilirubin 0.4 mg/dL (0.2-1.3) 07/13/20 15:30 Direct Bilirubin 0.2 mg/dL (0.0-0.4) 07/13/20 15:30 Neonat Total Bilirubin Not Reportable 07/13/20 15:30 Neonat Direct Bilirubin Not Reportable 07/13/20 15:30 Neonat Indirect Bili Not Reportable 07/13/20 15:30 AST 24 U/L (14-36) 07/13/20 15:30 ALT 17 U/L (<35) 07/13/20 15:30 Alkaline Phosphatase 110 U/L (38-126) 07/13/20 15:30 Creatine Kinase 54 U/L (30-135) 07/13/20 15:30 CK-MB (CK-2) 1.09 ng/mL (<4.55) 07/13/20 15:30 Troponin I 0.150 ng/mL 07/13/20 22:00 Total Protein 6.1 g/dL (6.3-8.2) L 07/13/20 15:30 Albumin 3.8 g/dL (3.5-5.0) 07/13/20 15:30 Triglycerides 89 mg/dL (<150) 07/14/20 05:33 Cholesterol 184.75 mg/dL (0-200) 07/14/20 05:33 LDL Cholesterol Direct 68 mg/dL (<100) 07/14/20 05:33 VLDL Cholesterol 17.8 mg/dL (10-31) 07/14/20 05:33 HDL Cholesterol 84 mg/dL (>40) 07/14/20 05:33 TSH 1.05 uIU/mL (0.47-4.68) 07/14/20 05:33 Free T4 0.84 ng/dL (0.78-2.19) 07/14/20 05:33 Urine Color YELLOW 07/14/20 04:49 Urine Appearance CLEAR 07/14/20 04:49 Urine pH 7.0 (5.0-9.0) 07/14/20 04:49 Ur Specific [employer] 1.011 07/14/20 04:49 Urine Protein NEGATIVE mg/dL (NEGATIVE) 07/14/20 04:49 Urine Glucose (UA) NEGATIVE mg/dL (NEGATIVE) 07/14/20 04:49 Urine Ketones NEGATIVE mg/dL (NEGATIVE) 07/14/20 04:49 Urine Blood NEGATIVE (NEGATIVE) 07/14/20 04:49 Urine Nitrite NEGATIVE (NEGATIVE) 07/14/20 04:49 Urine Bilirubin NEGATIVE (NEGATIVE) 07/14/20 04:49 Urine Urobilinogen NEGATIVE mg/dL (<2.0) 07/14/20 04:49 Ur Leukocyte Esterase SMALL (NEGATIVE) H 07/14/20 04:49 Urine WBC (Auto) 1 /HPF 07/14/20 04:49 Urine RBC (Auto) 0 /HPF 07/14/20 04:49 U Hyaline Cast (Auto) 9 /LPF 07/13/20 15:45 Squamous Epi Cells Auto <1 /HPF 07/14/20 04:49 Urine Mucus (Auto) RARE /LPF 07/14/20 04:49 Urine Ascorbic Acid NEGATIVE (NEGATIVE) 07/14/20 04:49 07/13/20 07/13/20 07/13/20 15:30 18:30 22:00 CK-MB (CK-2) 1.09 Troponin I 0.060 0.242 0.150 Impressions: Chest X-Ray 07/13/20 16:41 IMPRESSION: Hyperinflated lungs which can be seen with obstructive lung disease. No acute cardiopulmonary disease. Plan Plan of Treatment: Follow-up for stress test outpatient setting [facility] on July 21, 2020. She will be contacted with time and details last week. Time Spent: Greater than 30 Minutes Stroke Is this a Stroke Patient?: No Acute Heart Failure Is this a Heart Failure Patient?: No
[2020-07-14 17:58] VITALS: BP 103/64
[2020-07-14] MEDS ORDERED: BUPROPION HCL 75 MG TABLET PO SCH (22:00)
--- OUTSIDE RECORDS SUMMARY | 2020-07-16 09:09 | XMS REPORT ---
:1960 [facility] Address [address] [address] Care Team Providers Name Role Phone JESUS WALTERS Attending Clinician Unavailable Allergies, Adverse Reactions, Alerts This patient has no known allergies or adverse reactions. Medications Ordered Filled Start Stop Current Ordering Indication Dosage Frequency Signature Comments Components Medication Medication Date Date Medication? Clinician (SIG) Name Name Ondansetron Yes 4 Every 6 Hcl (Zofran 9-08 Hours as Odt*) 4 Mg 18:13: needed for ODT 00 Nausea/Vom iting Problems Condition Condition Condition Status Onset Resolution Last Treatin g Comments Name Details Category Date Date Treatment Clinician Date Syncope Syncope Problem Active Procedures This patient has no known procedures. Results Test Description Test Time Test Comments Text Results Atomic Results Result Comments CAT 2020-02-26 [facility] SCAN 16:35:[address] [place] [id number] Patient: MALACHI LAGOS : 1960 Sex : F Address: [address] [place] [address] [place] [address] [id number] Unit #: [id number] [facility] SEQ #: [id number] Location: ED Room #: Ordering: KATI GARCIAS Diagnosis: ALLERGIC REACTION / SOB CT HEAD WO CONTRAST Clinical Informa tion: ALLERGIC REACTION / SOB S.br syncope, dizziness Comparison: None TECHNIQUE : Noncontrast CT was performed from the base of the skull to the vertex. FINDINGS: Cortic al sulci, ventricles and basilar cisterns within normal limits for age. There is nohydrocephalus. There is no midline shift, mass effect, extra axial fluid collections or intracranial hem orrhage. There is no evidence for infarct or edema. The orbits are unremarkable. Mastoid air cell s and visualized portions of the paranasal sinuses are clear. 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 Calvarium intact. IMPRESSION: No CT evidence for acute intracranial abnormality. Final report electronically signed by: Jessica Goel DO Signed by: BONNY GOEL DO 02/26/20 [id number] cc: BONNY GOEL MEGAN FNP-URSULA Color of Urine by Auto 2020-02-26 15:59:00 Test Item Value Reference Range Comments Urine Color (test code = 08731-2) Yellow Urine clarity by refractometry guhtyydch8230-33-04 15:59:00 Test Item Value Reference Range Comments Urine Appearance (test code = 33640-8) Hazy Urine specific gravity measurement by automated test strip (relative density) 2020-02-26 15:59:00 Test Item Value Reference Range Comments Urine Specific Spencer (test code = 39246-5) 1.012 1.0 05-1.030 Urine pH measurement by automated test voett6357-56-96 15:59:00 Test Item Value Reference Range Comments Urine pH (test code = 56967-6) 7.0 5.0-8.0 Urine leukocyte esterase detection by automated test elbrx8956-55-84 15:59:00 Test Item Value Reference Range Comments Urine Leukocyte Esterase (test code = 96105-6) NEGATIVE N EGATIVE Urine nitrite detection by automated test bffzr0663-61-16 15:59:00 Test Item Value Reference Range Comments Urine Nitrite (test code = 76248-6) NEGATIVE NEGATIVE Urine protein detection by automated test eqzfo9349-25-99 15:59:00 Test Item Value Reference Range Comments Urine Protein (test code = 23557-3) 1+ NEGATIVE Urine glucose detection by automated test oylhl4485-15-40 15:59:00 Test Item Value Reference Range Comments Urine Glucose (UA) (test code = 99789-8) NEGATIVE NEGATIV E Urine ketone detection by automated test jinoq8021-67-53 15:59:00 Test Item Value Reference Range Comments Urine Ketones (test code = 44850-6) NEGATIVE NEGATIVE Urine urobilinogen measurement by automated test strip (mass/volume)2020-02-26 15:59:00 Test Item Value Reference Range Comments Urine Urobilinogen (test code = 02451-2) NEGATIVE NEGATIV E Urine bilirubin detection by automated test lofjd9189-29-04 15:59:00 Test Item Value Reference Range Comments Urine Bilirubin (test code = 27635-8) NEGATIVE NEGATIVE Urine erythrocytes detection by automated lnpryz1292-43-20 15:59:00 Test Item Value Reference Range Comments Urine Blood (test code = 89388-6) NEGATIVE NEGATIVE Urine ascorbic acid jsizxzatc3711-95-44 15:59:00 Test Item Value Reference Range Comments Urine Ascorbic Acid Level (test code = 1904-2) NEGATIVE Urine squamous epithelial cells detection by automated iaghss3501-43-19 15:59:00 Test Item Value Reference Range Comments Urine Squamous Epithelial Cells (test code = 91140-3) 1-5 0-5 RBC count ur lkix9417-48-63 15:59:00 Test Item Value Reference Range Comments Urine RBC (test code = 798-9) 0-2 0-2 Automated leukocytes count in urine sediment (number/area)2020-02-26 15:59:00 Test Item Value Reference Range Comments Urine WBC (test code = 22878-4) 0-5 0-5 Automated hyaline casts count in urine sediment by microscopy low powerfield (number/area)2020-02-26 15:59:00 Test Item Value Reference Range Comments Urine Hyaline Casts (test code = 5796-8) 3-10 0-2 Urine mucus detection by automated abxubc0047-24-94 15:59:00 Test Item Value Reference Range Comments Urine Mucus (test code = 44898-3) SMALL UNOMRSNPR0701-12-98 15:50:[address] [id number] Patient: MALACHI LAGOS : 1960 Sex: F Address: [address] [place] [address] [place] [address] [id number] Unit #: [id number] [facility] SEQ #: [id number] Location: ED Room #: Ordering: KATI ABREU [facility] Diagnosis: ALLERGIC REACTION / SOB CHEST PORTABLE - 1 VIEW History:ALLERGIC REACTION / SOB ALLERGIC REACTION / SOB S.br CHEST PAIN Single view of the chestwas obtained. The heart is normal. The lungs are clear. Vascularity is normal. Bony thorax is normal. There is nopneumothorax. Surgical clips in the right side of the neck. Impression: No active disease. Final report electronically signed by: Darlene Chaudhary MD Signed by: DARLENE CHAUDHARY II, MD 02/26/20 [id number] cc: DARLENE CHAUDHARY II, MD, [facility] Trop[facility] 2020-02-26 15:30:00 Test Item Value Reference Range Comments Bedside Troponin I (test code = Bedside Troponin I) 0.02 0.03-0.118 Automated erythrocyte mean corpuscular hemoglobin concentration measurement (mass/volume)2020-02-26 15:03:00 Test Item Value Reference Range Comments Mean Corpuscular Hemoglobin Concent (test code = 33.8 33.5-35.5 786-4) Automated erythrocyte distribution width wcqjb8549-73-29 15:03:00 Test Item Value Reference Range Comments Red Cell Distribution Width (test code = 788-0) 12.7 12.0-15.1 Automated blood platelet count (count/volume)2020-02-26 15:03:00 Test Item Value Reference Range Comments Platelet Count (test code = 777-3) 198 165-353 Automated blood platelet mean volume kprtguegxdg6038-45-40 15:03:00 Test Item Value Reference Range Comments Mean Platelet Volume (test code = 04520-8) 7.5 7.5-1 0.6 Automated blood neutrophil count as percentage of total koegthirlj3713-15-67 15:03:00 Test Item Value Reference Range Comments Neutrophils (%) (Auto) (test code = 770-8) 88.7 43.2- 71.5 Automated blood lymphocyte count as percentage of total riezgdmpyd5050-58-22 15:03:00 Test Item Value Reference Range Comments Lymphocytes (%) (Auto) (test code = 736-9) 8.3 16.8- 43.4 Automated blood monocyte count as percentage of total nrcdjbrylp6636-44-40 15:03:00 Test Item Value Reference Range Comments Monocytes (%) (Auto) (test code = 5905-5) 2.6 4.6-12 .4 Automated blood eosinophil count as percentage of total dsttcgqdle8492-71-58 15:03:00 Test Item Value Reference Range Comments Eosinophils (%) (Auto) (test code = 713-8) 0.1 0.7-7 .8 Automated blood basophil count as percentage of total dhhtwfzxfh6557-67-49 15:03:00 Test Item Value Reference Range Comments Basophils (%) (Auto) (test code = 706-2) 0.3 0.2-1.2 Blood neutrophils automated count (number/volume)2020-02-26 15:03:00 Test Item Value Reference Range Comments Neutrophils # (Auto) (test code = 751-8) 8.5 1.9-7.2 Automated blood lymphocyte count (number/volume)2020-02-26 15:03:00 Test Item Value Reference Range Comments Lymphocytes # (Auto) (test code = 731-0) 0.8 1.1-2.7 Blood monocytes automated count (number/volume)2020-02-26 15:03:00 Test Item Value Reference Range Comments Monocytes # (Auto) (test code = 742-7) 0.3 0.3-0.8 Automated blood eosinophil hpeml0554-60-18 15:03:00 Test Item Value Reference Range Comments Eosinophils # (Auto) (test code = 711-2) 0.0 0.0-0.5 Automated blood basophil count (count/volume)2020-02-26 15:03:00 Test Item Value Reference Range Comments Basophils # (Auto) (test code = 704-7) 0.0 0.0-0.1 Blood leukocytes automated count (number/volume)2020-02-26 15:03:00 Test Item Value Reference Range Comments White Blood Count (test code = 6690-2) 9.6 3.6-11.1 Sodium [Moles/volume] in Ywzjf6871-80-45 15:03:00 Test Item Value Reference Range Comments Sodium Level (test code = 2947-0) 143 137-144 Potassium [Moles/volume] in Serum or Renzvm2830-45-67 15:03:00 Test Item Value Reference Range Comments Potassium Level (test code = 2823-3) 3.5 3.1-5.1 Chloride ndgjx3531-50-01 15:03:00 Test Item Value Reference Range Comments Chloride Level (test code = 860766624) 107 101-110 Carbon dioxide viawu4990-40-88 15:03:00 Test Item Value Reference Range Comments Carbon Dioxide Level (test code = 98409458) 22 23-3 1 Glucose [Moles/volume] in Serum or Jzopvy7258-76-12 15:03:00 Test Item Value Reference Range Comments Glucose Level (test code = 32477-8) 154 70-105 GLS6523-69-09 15:03:00 Test Item Value Reference Range Comments Blood Urea Nitrogen (test code = 330445579) 16.0 9.8- 20.1 Creatinine zfmxh3098-68-17 15:03:00 Test Item Value Reference Range Comments Creatinine (test code = 210512415) 0.98 0.57-1.11 Estimation of creatinine hawbhxbtl6688-77-20 15:03:00 Test Item Value Reference Range Comments Estimated Creatinine Clearance 56.43 P T Ht: 167.64cm, PT Wt: 73.4KG Calc (test code = 459711665) Blood erythrocytes automated count (number/volume)2020-02-26 15:03:00 Test Item Value Reference Range Comments Red Blood Count (test code = 789-8) 4.33 3.69-4.88 Anion gap uuspljnwacg6520-44-88 15:03:00 Test Item Value Reference Range Comments Anion Gap (test code = 65662251) 18 7-16 Oypxkwh2217-46-01 15:03:00 Test Item Value Reference Range Comments Calcium Level (test code = 92388346) 9.0 8.4-10.2 Total xtdfnsdvo1036-81-63 15:03:00 Test Item Value Reference Range Comments Total Bilirubin (test code = XNG1901) 0.4 0.1-1.2 Total protein xygba8287-18-65 15:03:00 Test Item Value Reference Range Comments Total Protein (test code = 2885-2) 6.4 6.0-8.3 Cdznaoz6670-65-27 15:03:00 Test Item Value Reference Range Comments Albumin (test code = PQR8860) 4.0 3.2-5.2 Plasma globulin measurement (mass/volume)2020-02-26 15:03:00 Test Item Value Reference Range Comments Globulin (test code = 81496-4) 2.4 2.6-4.6 Albumin to globulin bpbpl7196-21-18 15:03:00 Test Item Value Reference Range Comments Albumin/Globulin Ratio (test code = 116210) 1.7 1.1- 2.5 AST (SGOT) ser/xcad9544-12-78 15:03:00 Test Item Value Reference Range Comments Aspartate Amino Transf (AST/SGOT) (test code = 17 5 -34 26667698) Alkaline fctfeflmicp4047-78-11 15:03:00 Test Item Value Reference Range Comments Alkaline Phosphatase (test code = 85838218) 92 40-1 50 ALT (SGPT) ser/vuzl5872-38-17 15:03:00 Test Item Value Reference Range Comments Alanine Aminotransferase (ALT/SGPT) (test code = 13 0-55 1742-6) Blood hemoglobin measurement (mass/volume)2020-02-26 15:03:00 Test Item Value Reference Range Comments Hemoglobin (test code = 718-7) 13.3 11.4-14.4 Lipase ser/rgzt2878-36-02 15:03:00 Test Item Value Reference Range Comments Lipase (test code = 3040-3) 48 7-78 Magnesium mkipo0050-84-87 15:03:00 Test Item Value Reference Range Comments Magnesium Level (test code = 125755690) 1.8 1.6-2.6 Thyroid Stimulating Cemvtbq0236-63-49 15:03:00 Test Item Value Reference Range Comments Thyroid Stimulating Hormone (TSH) (test code = 2.8773 0 .3500-4.9400 97481182) Free P01581-07-47 15:03:00 Test Item Value Reference Range Comments Free Thyroxine (test code = 8351901) 0.96 0.70-1.48 Automated blood hematocrit (volume fraction)2020-02-26 15:03:00 Test Item Value Reference Range Comments Hematocrit (test code = 4544-3) 39.4 33.3-41.4 Automated erythrocyte mean corpuscular jieiix5358-76-03 15:03:00 Test Item Value Reference Range Comments Mean Corpuscular Volume (test code = 787-2) 90.9 79.3 -94.8 Automated erythrocyte mean corpuscular hemoglobin (mass per erythrocyte) 2020-02-26 15:03:00 Test Item Value Reference Range Comments Mean Corpuscular Hemoglobin (test code = 785-6) 30.7 26.8-33.2 Encounters Start End Encounter Admission Attending Care Care Encounter Date/Time Date/Time Type Type Clinicians Facility Department ID 2020-02-26 2020-02-26 Emergency ED JESUS WALTERS [facility] [id number] 14:45:00 18:26:00 98 Payers Payer Name Policy Type Policy Number Effective Date Expiration D ate Social History Smoking Status Start Date Stop Date Former smoker 2020-02-26 14:54:00 Social History Observation Description Sex Female Vital Signs Vital Name Observation Time Observation Value Comments WEIGHT 2020-02-26 14:54:00 73.4000 kg HEIGHT 2020-02-26 14:54:00 167.575882 cm Weight 2020-02-26 14:54:00 161.82 [lb_av] BMI (Body Mass Index) 2020-02-26 14:54:00 26.0 kg/m2
== END 2020-07-14 18:45 | disposition home or self-care (01) ==
LOC: ER 15:08 → EH 17:41 → 4W 18:50
PROVIDERS: ADMIT Internal Medicine; ATTEND Physician Assistant
DX: R55 Syncope and collapse (principal); I95.9 Hypotension, unspecified; R09.02 Hypoxemia; R77.8 Other specified abnormalities of plasma proteins; E87.6 Hypokalemia; F32.9 Major depressive disorder, single episode, unspecified; E78.5 Hyperlipidemia, unspecified; R23.2 Flushing; L29.9 Pruritus, unspecified; R05 Cough; R51.9 Headache, unspecified; Z79.899 Other long term (current) drug therapy; Z79.82 Long term (current) use of aspirin; R00.0 Tachycardia, unspecified; Z85.828 Personal history of other malignant neoplasm of skin; R11.0 Nausea
CPT/HCPCS: 93005 ×2; 99285; 36415 ×2; 84439; 82553; 82550; 83735 ×2; 84443; 85025; 85027; 80048; 80053; 81001 ×2; 84484; 80061; 93306; 71045; 93010 ×2; G0378 ×2; J3490; J1650 ×2; J3480; J7030